=== PATIENT | male | born 1985 | race Caucasian/White ===

== ENCOUNTER 2017-04-13 20:58 | Emergency (ER) | payer SELFPAY ==
[~2017-04-13] VITALS: Ht 182.9 cm; Wt 79.5 kg
[2017-04-13 21:00] VITALS: BP 139/73; TEMP 98.8
[2017-04-13 21:53] LABS: BASO % 0.2 % (0.0-2.0); EOS # 0.2 (0.0-0.7); EOS % 1.4 % (0-4.0); GRAN % 77.9 % (42.2-75.2); HEMATOCRIT 42.4 % (42.0-52.0); HEMOGLOBIN 15.2 g/dl (13.5-18.0); LYMPH % 12.1 % (20.0-51.0); MEAN CELL VOLUME 85 fl (80.0-100.0); MEAN CORPUSCULAR HEMOGLOBIN 31 pg (27.0-31.0); MEAN CORPUSCULAR HGB CONC 36 g/dl (33.0-37.0); MEAN PLATELET VOLUME 8.9 fl (7.4-10.4); MONO # 1.3 (0.1-0.6); MONO % 7.9 % (1.7-9.3); PLATELET COUNT 245 K/mm3 (130-400); RED BLOOD COUNT 4.99 M/mm3 (4.20-5.60); REDCELL DISTRIBUTION WIDTH-CV 12.5 % (11.5-14.5); WHITE BLOOD COUNT 16.6 K/mm3 (4.8-10.8)
[2017-04-13 22:06] LABS: C-REACTIVE PROTEIN 1.5 mg/dL (0.0-0.9); URIC ACID 7.5 mg/dL (3.5-8.5)
[2017-04-13 22:13] LABS: ERYTHROCYTE SEDIMENTATION RATE 14 mm/hr (0-15)
[2017-04-13] MEDS ORDERED: CRUTCHES MC (22:19)
[2017-04-13 22:37] VITALS: PULSE 101
[2017-04-20] MEDS ORDERED: ASPIRIN 32325 MG/TAB PO (18:29)
[2017-04-20] MEDS ORDERED: ROXICODONE 55 MG/TAB PO (18:29)
[2017-04-20] MEDS ORDERED: ADVIL200 MG PO (18:30)
== END 2017-04-13 22:40 | disposition home or self-care (01) ==
LOC: COL.ER 20:58
PROVIDERS: Physician Assistant
DX: M25.571 Pain in right ankle and joints of right foot (principal); Z87.39 Personal history of other diseases of the musculoskeletal system and connective tissue

== ENCOUNTER 2017-04-14 18:56 | Emergency (ER) | payer SELFPAY ==
[~2017-04-14] VITALS: Ht 182.9 cm; Wt 79.5 kg
[~2017-04-14 18:56] MED LIST: CRUTCHES MC
[2017-04-14 19:07] VITALS: TEMP 98.4
[2017-04-14 21:19] LABS: BASO % 0.2 % (0.0-2.0); EOS # 0.4 (0.0-0.7); EOS % 2.4 % (0-4.0); GRAN % 74.6 % (42.2-75.2); HEMATOCRIT 42.2 % (42.0-52.0); HEMOGLOBIN 14.9 g/dl (13.5-18.0); LYMPH # 2.1 (1.2-3.4); LYMPH % 12.9 % (20.0-51.0); MEAN CELL VOLUME 86 fl (80.0-100.0); MEAN CORPUSCULAR HEMOGLOBIN 30 pg (27.0-31.0); MEAN CORPUSCULAR HGB CONC 35 g/dl (33.0-37.0); MEAN PLATELET VOLUME 9.1 fl (7.4-10.4); MONO # 1.5 (0.1-0.6); MONO % 9.5 % (1.7-9.3); PLATELET COUNT 211 K/mm3 (130-400); REDCELL DISTRIBUTION WIDTH-CV 12.4 % (11.5-14.5); WHITE BLOOD COUNT 16.1 K/mm3 (4.8-10.8)
[2017-04-14 21:40] LABS: ERYTHROCYTE SEDIMENTATION RATE 30 mm/hr (0-15)
[2017-04-15 00:09] LABS: CHLAMYDIA/TRACH by PCR Male NOT DETECTED; Neisseria Gon by PCR Male NOT DETECTED
[2017-04-15 00:32] VITALS: BP 135/76; PULSE 94
[2017-04-20] MEDS ORDERED: ASPIRIN 32325 MG/TAB PO (18:29)
[2017-04-20] MEDS ORDERED: ROXICODONE 55 MG/TAB PO (18:29)
[2017-04-20] MEDS ORDERED: ADVIL200 MG PO (18:30)
== END 2017-04-15 00:49 | disposition short-term general hospital (02) ==
LOC: COL.ER 18:56
PROVIDERS: Emergency Medicine
DX: M00.9 Pyogenic arthritis, unspecified (principal); M25.471 Effusion, right ankle
CPT/HCPCS: J1170; J1885; J3370; J7030; J7040

== ENCOUNTER 2017-04-21 16:30 | Outpatient (RCR) | payer MEDICAID ==
[2017-04-20 17:40] VITALS: BP 126/97; PULSE 97; TEMP 98
[2017-04-20 18:32] LABS: BASO % 0.2 % (0.0-2.0); EOS # 0.4 (0.0-0.7); EOS % 4.7 % (0-4.0); GRAN # 5.3 (1.4-6.5); GRAN % 61.1 % (42.2-75.2); HEMOGLOBIN 12.8 g/dl (13.5-18.0); LYMPH % 22.9 % (20.0-51.0); MEAN CELL VOLUME 86 fl (80.0-100.0); MEAN CORPUSCULAR HEMOGLOBIN 30 pg (27.0-31.0); MEAN CORPUSCULAR HGB CONC 35 g/dl (33.0-37.0); MEAN PLATELET VOLUME 8.7 fl (7.4-10.4); MONO # 0.9 (0.1-0.6); MONO % 10.6 % (1.7-9.3); PLATELET COUNT 295 K/mm3 (130-400); RED BLOOD COUNT 4.25 M/mm3 (4.20-5.60); REDCELL DISTRIBUTION WIDTH-CV 11.7 % (11.5-14.5); WHITE BLOOD COUNT 8.6 K/mm3 (4.8-10.8)
[2017-04-20 18:35] LABS: HEMATOCRIT 36.4 % (42.0-52.0)
[2017-04-20 18:43] LABS: ADJUSTED CALCIUM 9.8 mg/dL (8.4-10.2); ALBUMIN 3.9 gm/dL (3.5-5.0); BILIRUBIN,TOTAL 0.5 mg/dL (0.0-1.0); C-REACTIVE PROTEIN 3.5 mg/dL (0.0-0.9); CALCIUM 9.7 mg/dL (8.4-10.2); CREATININE, serum 0.94 mg/dL (0.66-1.25); POTASSIUM 3.5 mmol/L (3.4-5.0); TOTAL PROTEIN 7.2 gm/dL (6.4-8.2)
[~2017-04-21] VITALS: Ht 182.9 cm; Wt 79.5 kg
[~2017-04-21 16:30] MED LIST changes: +ADVIL200 MG PO; +ASPIRIN 32325 MG/TAB PO; +ROXICODONE 55 MG/TAB PO
[2017-04-21 16:46] VITALS: BP 127/73; PULSE 88; TEMP 98
[2017-04-24] MEDS ORDERED: ROXICODONE15 MG PO (12:02)
== END 2017-04-22 10:44 | disposition home or self-care (01) ==
LOC: EUO 16:30
PROVIDERS: Emergency Medicine
DX: A49.9 Bacterial infection, unspecified (principal); M01.X71 Direct infection of right ankle and foot in infectious and parasitic diseases classified elsewhere
CPT/HCPCS: J0878

== ENCOUNTER 2017-05-09 09:00 | Outpatient (RCR) | payer MEDICAID ==
[2017-04-24 09:29] VITALS: BP 129/85; PULSE 90; TEMP 98
[2017-04-25 08:57] VITALS: BP 133/84; PULSE 114
[2017-04-26 09:03] VITALS: BP 144/81; PULSE 107; TEMP 97.8
[2017-04-27 09:30] VITALS: BP 134/77; PULSE 100
[2017-04-28 09:30] VITALS: BP 131/72; PULSE 111; TEMP 98
[2017-04-28 09:40] LABS: HEMATOCRIT 39.7 % (42.0-52.0); MEAN CELL VOLUME 85 fl (80.0-100.0); MEAN CORPUSCULAR HEMOGLOBIN 30 pg (27.0-31.0); MEAN CORPUSCULAR HGB CONC 35 g/dl (33.0-37.0); MEAN PLATELET VOLUME 8.5 fl (7.4-10.4); PLATELET COUNT 309 K/mm3 (130-400); RED BLOOD COUNT 4.69 M/mm3 (4.20-5.60); WHITE BLOOD COUNT 9.3 K/mm3 (4.8-10.8)
[2017-04-28 09:53] LABS: ADJUSTED CALCIUM 9.7 mg/dL (8.4-10.2); ALBUMIN 4.5 gm/dL (3.5-5.0); BILIRUBIN,TOTAL 0.8 mg/dL (0.0-1.0); C-REACTIVE PROTEIN 0.9 mg/dL (0.0-0.9); CALCIUM 10.1 mg/dL (8.4-10.2); CREATININE, serum 1.14 mg/dL (0.66-1.25); POTASSIUM 3.5 mmol/L (3.4-5.0); TOTAL PROTEIN 7.9 gm/dL (6.4-8.2)
[2017-04-29 09:00] VITALS: BP 153/87; PULSE 88; TEMP 97.4
[2017-04-30 09:29] VITALS: BP 134/73; PULSE 102; TEMP 98.1
[2017-05-02 09:25] VITALS: BP 132/78; PULSE 82; TEMP 97.9
[2017-05-03 08:54] VITALS: BP 141/86; PULSE 110; TEMP 97.8
[2017-05-04 09:09] VITALS: BP 142/83; PULSE 97; TEMP 98
[2017-05-04 09:13] LABS: HEMATOCRIT 43.3 % (42.0-52.0); HEMOGLOBIN 15.1 g/dl (13.5-18.0); MEAN CELL VOLUME 86 fl (80.0-100.0); MEAN CORPUSCULAR HEMOGLOBIN 30 pg (27.0-31.0); MEAN CORPUSCULAR HGB CONC 35 g/dl (33.0-37.0); MEAN PLATELET VOLUME 8.8 fl (7.4-10.4); PLATELET COUNT 292 K/mm3 (130-400); RED BLOOD COUNT 5.03 M/mm3 (4.20-5.60); WHITE BLOOD COUNT 8.9 K/mm3 (4.8-10.8)
[2017-05-04 09:38] LABS: ADJUSTED CALCIUM 9.6 mg/dL (8.4-10.2); ALANINE AMINOTRANSFERASE 59 U/L (21-72); ALBUMIN 4.3 gm/dL (3.5-5.0); ALKALINE PHOSPHATASE 76 U/L (50-136); ANION GAP 11 mmol/L (7-16); BILIRUBIN,TOTAL 0.6 mg/dL (0.0-1.0); BLOOD UREA NITROGEN 14 mg/dL (9-20); CALCIUM 9.8 mg/dL (8.4-10.2); CARBON DIOXIDE 26 mmol/L (22-30); CHLORIDE 102 mmol/L (98-107); CREATINE KINASE 41 U/L (55-170); CREATININE, serum 0.94 mg/dL (0.66-1.25); GLUCOSE 104 mg/dL (74-106); POTASSIUM 4.3 mmol/L (3.4-5.0); SODIUM 139 mmol/L (137-145); TOTAL PROTEIN 7.8 gm/dL (6.4-8.2)
[2017-05-04 09:44] LABS: C-REACTIVE PROTEIN < 0.5 mg/dL (0.0-0.9)
[2017-05-06 08:58] VITALS: BP 157/83; PULSE 110; TEMP 98.2
[2017-05-07 09:30] VITALS: BP 165/97; PULSE 188; TEMP 97.3
[~2017-05-09] VITALS: Ht 182.9 cm; Wt 78.3 kg
[~2017-05-09 09:00] MED LIST changes: +ROXICODONE15 MG PO
== END 2017-05-14 16:15 | disposition home or self-care (01) ==
LOC: EUO 09:00
PROVIDERS: Emergency Medicine
DX: A49.02 Methicillin resistant Staphylococcus aureus infection, unspecified site (principal); M25.571 Pain in right ankle and joints of right foot; Z98.890 Other specified postprocedural states
CPT/HCPCS: J0878

== ENCOUNTER 2017-06-07 14:22 | Inpatient (IN) | payer MEDICAID ==
[~2017-06-07] VITALS: Ht 182.9 cm; Wt 80.1 kg
[2017-06-07 15:27] LABS: HEMATOCRIT 43.8 % (42.0-52.0); HEMOGLOBIN 15.9 g/dl (13.5-18.0); MEAN CELL VOLUME 82 fl (80.0-100.0); MEAN CORPUSCULAR HEMOGLOBIN 30 pg (27.0-31.0); MEAN CORPUSCULAR HGB CONC 36 g/dl (33.0-37.0); PLATELET COUNT 158 K/mm3 (130-400); RED BLOOD COUNT 5.34 M/mm3 (4.20-5.60); WHITE BLOOD COUNT 11.4 K/mm3 (4.8-10.8)
[2017-06-07 15:33] LABS: ADD PATHOLOGY DIFF REVIEW NO
[2017-06-07 15:41] LABS: ADJUSTED CALCIUM 9.2 mg/dL (8.4-10.2); ALBUMIN 4.6 gm/dL (3.5-5.0); CALCIUM 9.7 mg/dL (8.4-10.2); CREATININE, serum 1.32 mg/dL (0.66-1.25); POTASSIUM 3.3 mmol/L (3.4-5.0)
[2017-06-07 15:58] LABS: C-REACTIVE PROTEIN 19.8 mg/dL (0.0-0.9)
[2017-06-07 16:03] LABS: BAND 25 % (0-10); EOSINOPHIL 3 % (0-4); NEUTROPHILS 61 % (42.0-75.2); TOTAL CELLS COUNTED 100
[2017-06-07 16:04] LABS: COLLECTION METHOD CLEAN CATCH
[2017-06-07 16:05] LABS: LYMPHOCYTE 7 % (20.0-51.0); MICROCYTOSIS 1+
[2017-06-07 16:26] LABS: PH 5 (5-8); SQUAMOUS EPITHELIAL 0-2 /hpf; URINE APPEARANCE Hazy; URINE BACTERIA None Seen /hpf; URINE BILIRUBIN Negative (NEGATIVE); URINE BLOOD 1+ (NEGATIVE); URINE COLOR Yellow; URINE GLUCOSE Negative (NEGATIVE); URINE KETONE Negative (NEGATIVE); URINE LEUKOCYTE ESTERASE Negative (NEGATIVE); URINE PROTEIN(semi-quant) Negative (NEGATIVE); URINE RBC 0-2 /hpf; URINE WBC 0-2 /hpf
[2017-06-07 18:04] VITALS: BP 125/60; PULSE 91; TEMP 98.2
[2017-06-07 20:05] VITALS: BP 123/60; PULSE 96; TEMP 98.8
[2017-06-08 04:15] VITALS: BP 130/78; PULSE 100; TEMP 99.8
[2017-06-08 07:43] LABS: MEAN CELL VOLUME 84 fl (80.0-100.0); MEAN CORPUSCULAR HGB CONC 35 g/dl (33.0-37.0); MEAN PLATELET VOLUME 9.5 fl (7.4-10.4); PLATELET COUNT 132 K/mm3 (130-400); RED BLOOD COUNT 4.18 M/mm3 (4.20-5.60); WHITE BLOOD COUNT 6.3 K/mm3 (4.8-10.8)
[2017-06-08 07:47] LABS: ADD PATHOLOGY DIFF REVIEW NO; HEMATOCRIT 35.2 % (42.0-52.0); HEMOGLOBIN 12.3 g/dl (13.5-18.0); MEAN CORPUSCULAR HEMOGLOBIN 29 pg (27.0-31.0)
[2017-06-08 08:29] LABS: ERYTHROCYTE SEDIMENTATION RATE 22 mm/hr (0-15)
[2017-06-08 09:21] LABS: ANISOCYTOSIS 1+; BAND 46 % (0-10); LYMPHOCYTE 20 % (20.0-51.0); NEUTROPHILS 34 % (42.0-75.2); PLATELET ESTIMATE NORMAL (NORMAL); TOTAL CELLS COUNTED 100
[2017-06-08 09:43] VITALS: BP 121/74; PULSE 91; TEMP 97.5
[2017-06-08 12:35] VITALS: BP 119/68; PULSE 76; TEMP 97.2
[2017-06-08 16:12] VITALS: BP 107/51; PULSE 98; TEMP 98.2
[2017-06-08 20:50] VITALS: BP 119/68; PULSE 80; TEMP 98
[2017-06-09 00:39] VITALS: BP 115/60; PULSE 80; TEMP 98
[2017-06-09 07:33] LABS: CREATININE, serum 0.82 mg/dL (0.66-1.25)
[2017-06-09 08:19] VITALS: BP 116/70; PULSE 84; TEMP 97.9
[2017-06-09 11:41] VITALS: BP 125/76; PULSE 87; TEMP 98.4
[2017-06-09 12:01] LABS: GLUCOSE,SYNOVIAL FLUID < 20 mg/dL
[2017-06-09 12:13] LABS: SYNOVIAL FL. MONONUCLEAR 46.2 % (0-75); SYNOVIAL FL. POLYMORPHONUCLEAR 53.8 % (0-25); SYNOVIAL FLUID RBC 89000 /mm3 (0-0); SYNOVIAL FLUID WBC 119 /mm3 (200-600)
[2017-06-09 12:17] LABS: SYNOVIAL FLUID APPEARANCE HAZY; SYNOVIAL FLUID COLOR RED
[2017-06-09] MEDS ORDERED: CUBICIN 500MG500 MG IV (13:32)
[2017-06-10] MEDS ORDERED: DAZIDOX10 MG PO (10:03)
== END 2017-06-09 14:51 | disposition home or self-care (01) | DRG 872 ==
LOC: COL.ER 14:22 → MEDICAL 17:27
PROVIDERS: Emergency Medicine
PROC: 02HV33Z Insertion of Infusion Device into Superior Vena Cava, Percutaneous Approach (ICD-10-PCS; principal; 2017-06-09)
DX: A41.02 Sepsis due to Methicillin resistant Staphylococcus aureus (principal); M86.171 Other acute osteomyelitis, right ankle and foot; E87.2 Acidosis; B95.62 Methicillin resistant Staphylococcus aureus infection as the cause of diseases classified elsewhere
CPT/HCPCS: A9585; C1751; J0878; J1170; J1644; J2270; J2405; J2543; J3370; J7030; J7050; Q9967

== ENCOUNTER 2017-06-24 06:50 | Emergency (ER) | payer MEDICAID ==
[~2017-06-24] VITALS: Ht 182.9 cm; Wt 79.5 kg
[~2017-06-24 06:50] MED LIST changes: +CUBICIN 500MG500 MG IV; +DAZIDOX10 MG PO
[2017-06-24 06:54] VITALS: TEMP 97
[2017-06-24 08:10] LABS: BASO # 0.1 (0.0-0.2); BASO % 0.8 % (0.0-2.0); EOS # 0.4 (0.0-0.7); EOS % 5.2 % (0-4.0); GRAN # 3.6 (1.4-6.5); GRAN % 51.1 % (42.2-75.2); HEMATOCRIT 38.5 % (42.0-52.0); HEMOGLOBIN 13.6 g/dl (13.5-18.0); LYMPH % 27.7 % (20.0-51.0); MEAN CELL VOLUME 84 fl (80.0-100.0); MEAN CORPUSCULAR HEMOGLOBIN 30 pg (27.0-31.0); MEAN CORPUSCULAR HGB CONC 35 g/dl (33.0-37.0); MEAN PLATELET VOLUME 8.7 fl (7.4-10.4); MONO # 1.1 (0.1-0.6); MONO % 15.1 % (1.7-9.3); PLATELET COUNT 240 K/mm3 (130-400); RED BLOOD COUNT 4.61 M/mm3 (4.20-5.60); WHITE BLOOD COUNT 7.1 K/mm3 (4.8-10.8)
[2017-06-24 08:30] LABS: ERYTHROCYTE SEDIMENTATION RATE 22 mm/hr (0-15)
[2017-06-24 08:33] LABS: ADJUSTED CALCIUM 9.6 mg/dL (8.4-10.2); ALBUMIN 4.5 gm/dL (3.5-5.0); BILIRUBIN,TOTAL 1.4 mg/dL (0.0-1.0); C-REACTIVE PROTEIN 1.5 mg/dL (0.0-0.9); CREATININE, serum 1.02 mg/dL (0.66-1.25); POTASSIUM 3.4 mmol/L (3.4-5.0); TOTAL PROTEIN 7.8 gm/dL (6.4-8.2)
[2017-06-24 13:57] VITALS: BP 121/79; PULSE 98
[2017-06-24 14:08] LABS: SYNOVIAL FL. MONONUCLEAR 93.7 % (0-75); SYNOVIAL FL. POLYMORPHONUCLEAR 6.3 % (0-25); SYNOVIAL FLUID RBC 1000 /mm3 (0-0); SYNOVIAL FLUID WBC 383 /mm3 (200-600)
[2017-06-24 14:10] LABS: SYNOVIAL FLUID COLOR YELLOW
[2017-06-24 14:11] LABS: SYNOVIAL FLUID APPEARANCE HAZY
[2017-06-24 15:38] LABS: AMPHETAMINE URINE POSITIVE; BARBITURATES URINE NEGATIVE; BENZODIAZEPINES URINE NEGATIVE; BUPRENORPHINE URINE NEGATIVE; METHADONE URINE NEGATIVE; OPIATES URINE POSITIVE; OXYCODONE URINE POSITIVE; PHENCYCLIDINE URINE NEGATIVE; PROPOXYPHENE URINE NEGATIVE; THC CANNABINOIDS URINE POSITIVE; TRICYCLIC ANTIDEPRESS URINE NEGATIVE
== END 2017-06-24 14:04 | disposition home or self-care (01) ==
LOC: COL.ER 06:50
PROVIDERS: Physician Assistant
DX: L03.116 Cellulitis of left lower limb (principal); I80.8 Phlebitis and thrombophlebitis of other sites; M86.9 Osteomyelitis, unspecified
CPT/HCPCS: J0878; J1170; J1644; J7030

== ENCOUNTER → 2017-07-06 | Outpatient (CLI) | payer MEDICAID | LOC: COL.RAD 07:30 | DX: M47.814 Spondylosis without myelopathy or radiculopathy, thoracic region (principal); R70.0 Elevated erythrocyte sedimentation rate ==

== ENCOUNTER 2017-07-16 09:30 | Outpatient (RCR) | payer MEDICAID ==
[2017-06-10 09:59] VITALS: BP 134/74; PULSE 91; TEMP 98.1
[2017-06-11 09:46] VITALS: BP 133/76; PULSE 93; TEMP 98.1
[2017-06-12 09:42] VITALS: BP 141/84; PULSE 96; TEMP 98.1
[2017-06-13 09:13] VITALS: BP 133/79; PULSE 106; TEMP 97.3
[2017-06-14 09:28] VITALS: BP 129/79; PULSE 94; TEMP 97.9
[2017-06-14 09:34] LABS: HEMATOCRIT 37.5 % (42.0-52.0); HEMOGLOBIN 13.2 g/dl (13.5-18.0); MEAN CELL VOLUME 85 fl (80.0-100.0); MEAN CORPUSCULAR HEMOGLOBIN 30 pg (27.0-31.0); MEAN CORPUSCULAR HGB CONC 35 g/dl (33.0-37.0); MEAN PLATELET VOLUME 9.1 fl (7.4-10.4); PLATELET COUNT 300 K/mm3 (130-400); RED BLOOD COUNT 4.43 M/mm3 (4.20-5.60); REDCELL DISTRIBUTION WIDTH-CV 12.8 % (11.5-14.5)
[2017-06-14 09:42] LABS: ALBUMIN 4.3 gm/dL (3.5-5.0); BILIRUBIN,TOTAL 0.6 mg/dL (0.0-1.0); C-REACTIVE PROTEIN 0.8 mg/dL (0.0-0.9); CALCIUM 9.8 mg/dL (8.4-10.2); CREATININE, serum 0.82 mg/dL (0.66-1.25); POTASSIUM 3.9 mmol/L (3.4-5.0); TOTAL PROTEIN 7.5 gm/dL (6.4-8.2)
[2017-06-14 10:46] LABS: BAND 1 % (0-10); LYMPHOCYTE 39 % (20.0-51.0); NEUTROPHILS 56 % (42.0-75.2)
[2017-06-14 10:47] LABS: PLATELET ESTIMATE NORMAL (NORMAL)
[2017-06-14 10:48] LABS: MICROCYTOSIS 1+
[2017-06-15 09:22] VITALS: BP 124/66; PULSE 89; TEMP 97.4
[2017-06-16 09:21] VITALS: BP 111/65; PULSE 98; TEMP 97.6
[2017-06-17 09:09] VITALS: BP 130/75; PULSE 92; TEMP 97.6
[2017-06-18 09:46] VITALS: BP 135/81; PULSE 114; TEMP 98.3
[2017-06-19 08:36] VITALS: BP 130/75; PULSE 117
[2017-06-20 08:38] VITALS: BP 134/83; PULSE 113
[2017-06-21 09:33] VITALS: BP 135/77; PULSE 87; TEMP 97.8
[2017-06-22 08:51] VITALS: BP 153/81; PULSE 105
[2017-06-25 09:33] VITALS: BP 127/69; PULSE 85; TEMP 97.7
[2017-06-26 08:31] VITALS: BP 121/68; PULSE 98; TEMP 97.6
[2017-06-27 08:32] VITALS: BP 119/75; PULSE 85; TEMP 97.7
[2017-06-28 09:36] VITALS: BP 151/79; PULSE 109; TEMP 98.1
[2017-06-28 09:41] LABS: BASO % 0.4 % (0.0-2.0); EOS # 0.3 (0.0-0.7); EOS % 4.7 % (0-4.0); GRAN # 3.9 (1.4-6.5); GRAN % 54.2 % (42.2-75.2); HEMOGLOBIN 12.4 g/dl (13.5-18.0); LYMPH # 2.4 (1.2-3.4); LYMPH % 32.7 % (20.0-51.0); MEAN CELL VOLUME 84 fl (80.0-100.0); MEAN CORPUSCULAR HEMOGLOBIN 30 pg (27.0-31.0); MEAN CORPUSCULAR HGB CONC 35 g/dl (33.0-37.0); MEAN PLATELET VOLUME 8.8 fl (7.4-10.4); MONO # 0.6 (0.1-0.6); MONO % 7.6 % (1.7-9.3); PLATELET COUNT 241 K/mm3 (130-400); RED BLOOD COUNT 4.19 M/mm3 (4.20-5.60); REDCELL DISTRIBUTION WIDTH-CV 12.6 % (11.5-14.5)
[2017-06-28 10:00] LABS: ALBUMIN 4.1 gm/dL (3.5-5.0); BILIRUBIN,TOTAL 0.6 mg/dL (0.0-1.0); C-REACTIVE PROTEIN 0.9 mg/dL (0.0-0.9); CALCIUM 9.6 mg/dL (8.4-10.2); CREATININE, serum 0.83 mg/dL (0.66-1.25); POTASSIUM 3.5 mmol/L (3.4-5.0); TOTAL PROTEIN 7.1 gm/dL (6.4-8.2)
[2017-06-29 09:40] VITALS: BP 144/81; PULSE 74; TEMP 98.1
[2017-06-30 09:44] VITALS: BP 135/84; PULSE 112; TEMP 97.5
[2017-07-02 09:40] VITALS: BP 114/70; PULSE 111; TEMP 97.8
[2017-07-02 09:51] LABS: HEMATOCRIT 39.5 % (42.0-52.0); HEMOGLOBIN 13.8 g/dl (13.5-18.0); MEAN CELL VOLUME 84 fl (80.0-100.0); MEAN CORPUSCULAR HEMOGLOBIN 30 pg (27.0-31.0); MEAN CORPUSCULAR HGB CONC 35 g/dl (33.0-37.0); MEAN PLATELET VOLUME 8.7 fl (7.4-10.4); PLATELET COUNT 167 K/mm3 (130-400); RED BLOOD COUNT 4.68 M/mm3 (4.20-5.60)
[2017-07-02 10:06] LABS: ALBUMIN 4.3 gm/dL (3.5-5.0); BILIRUBIN,TOTAL 1.3 mg/dL (0.0-1.0); C-REACTIVE PROTEIN 5.1 mg/dL (0.0-0.9); CALCIUM 9.7 mg/dL (8.4-10.2); CREATININE, serum 0.8 mg/dL (0.66-1.25); TOTAL PROTEIN 7.5 gm/dL (6.4-8.2)
[2017-07-02 10:10] LABS: ERYTHROCYTE SEDIMENTATION RATE 28 mm/hr (0-15)
[2017-07-02 10:15] LABS: POTASSIUM 4.3 mmol/L (3.4-5.0)
[2017-07-03 08:45] VITALS: BP 138/68; PULSE 104
[2017-07-04 08:46] VITALS: BP 119/71; PULSE 98; TEMP 97.4
[2017-07-05 09:50] VITALS: BP 128/69; PULSE 99; TEMP 97.3
[2017-07-06 08:21] VITALS: BP 114/69; PULSE 96; TEMP 98
[2017-07-07 08:53] VITALS: BP 110/60; PULSE 66; TEMP 97
[2017-07-07 09:23] LABS: HEMOGLOBIN 12.8 g/dl (13.5-18.0); MEAN CELL VOLUME 83 fl (80.0-100.0); MEAN CORPUSCULAR HEMOGLOBIN 29 pg (27.0-31.0); MEAN CORPUSCULAR HGB CONC 36 g/dl (33.0-37.0); MEAN PLATELET VOLUME 8.9 fl (7.4-10.4); PLATELET COUNT 212 K/mm3 (130-400); RED BLOOD COUNT 4.35 M/mm3 (4.20-5.60); REDCELL DISTRIBUTION WIDTH-CV 12.6 % (11.5-14.5)
[2017-07-07 09:27] LABS: HEMATOCRIT 35.9 % (42.0-52.0)
[2017-07-07 09:51] LABS: ERYTHROCYTE SEDIMENTATION RATE 31 mm/hr (0-15)
[2017-07-08 09:28] VITALS: BP 120/66; PULSE 96; TEMP 98.2
[2017-07-09 09:41] VITALS: BP 136/84; PULSE 102; TEMP 97.8
[2017-07-10 08:40] VITALS: BP 136/80; PULSE 110; TEMP 97.4
[2017-07-11 09:26] VITALS: BP 119/79; PULSE 98; TEMP 98.1
[2017-07-12 08:43] VITALS: BP 137/82; PULSE 91; TEMP 97.2
[2017-07-13 09:38] VITALS: BP 134/81; PULSE 92; TEMP 98
[2017-07-14 09:36] VITALS: BP 135/83; PULSE 94; TEMP 97.6
[2017-07-15 09:30] VITALS: BP 125/78; PULSE 98; TEMP 97.8
[~2017-07-16] VITALS: Ht 182.9 cm; Wt 77.2 kg
[2017-07-16 09:44] LABS: HEMOGLOBIN 12.8 g/dl (13.5-18.0); MEAN CELL VOLUME 85 fl (80.0-100.0); MEAN CORPUSCULAR HEMOGLOBIN 30 pg (27.0-31.0); MEAN CORPUSCULAR HGB CONC 35 g/dl (33.0-37.0); MEAN PLATELET VOLUME 8.3 fl (7.4-10.4); PLATELET COUNT 230 K/mm3 (130-400); RED BLOOD COUNT 4.31 M/mm3 (4.20-5.60); REDCELL DISTRIBUTION WIDTH-CV 13.6 % (11.5-14.5)
[2017-07-16 09:46] LABS: HEMATOCRIT 36.8 % (42.0-52.0)
[2017-07-16 09:49] VITALS: BP 121/71; PULSE 101; TEMP 97.7
[2017-07-16 10:36] LABS: BAND 17 % (0-10); EOSINOPHIL 1 % (0-4); LYMPHOCYTE 41 % (20.0-51.0); NEUTROPHILS 41 % (42.0-75.2); PLATELET ESTIMATE NORMAL (NORMAL)
[2017-07-16 10:37] LABS: ERYTHROCYTE SEDIMENTATION RATE 9 mm/hr (0-15)
== END 2017-07-16 11:01 | disposition home or self-care (01) ==
LOC: EUO 09:30
PROVIDERS: Emergency Medicine
DX: M86.8X7 Other osteomyelitis, ankle and foot (principal); Z95.9 Presence of cardiac and vascular implant and graft, unspecified
CPT/HCPCS: J0878; J1644

== ENCOUNTER 2020-04-07 18:55 | Observation (INO) | payer SELFPAY ==
[~2020-04-07] VITALS: Ht 182.9 cm; Wt 79.0 kg
[2020-04-07 19:21] LABS: BASO % 0.3 % (0.0-2.0); EOS # 0.2 (0.0-0.7); EOS % 1.4 % (0-4.0); GRAN # 11.9 (1.4-6.5); GRAN % 76.6 % (42.2-75.2); HEMATOCRIT 45.2 % (42.0-52.0); HEMOGLOBIN 16.5 g/dl (13.5-18.0); LYMPH # 2.2 (1.2-3.4); LYMPH % 14.2 % (20.0-51.0); MEAN CELL VOLUME 85 fl (80.0-100.0); MEAN CORPUSCULAR HEMOGLOBIN 31 pg (27.0-31.0); MEAN CORPUSCULAR HGB CONC 37 g/dl (33.0-37.0); MONO # 1.1 (0.1-0.6); MONO % 7.1 % (1.7-9.3); PLATELET COUNT 270 K/mm3 (130-400); RED BLOOD COUNT 5.35 M/mm3 (4.20-5.60); REDCELL DISTRIBUTION WIDTH-CV 12.1 % (11.5-14.5)
[2020-04-07 19:53] LABS: ALANINE AMINOTRANSFERASE 15 U/L (4-49); ALBUMIN 4.7 gm/dL (3.5-5.0); ALKALINE PHOSPHATASE 78 U/L (50-136); ANION GAP 10 mmol/L (7-16); AST,SGOT 24 U/L (15-37); BILIRUBIN,TOTAL 1.2 mg/dL (0.0-1.0); BLOOD UREA NITROGEN 12 mg/dL (9-20); CARBON DIOXIDE 24 mmol/L (22-30); CHLORIDE 104 mmol/L (98-107); CREATININE, serum 0.83 (0.66-1.25); GLUCOSE 107 mg/dL (74-106); LIPASE 33 U/L (23-300); POTASSIUM 3.7 mmol/L (3.4-5.0); SODIUM 138 mmol/L (137-145); TOTAL PROTEIN 7.9 gm/dL (6.4-8.2)
[2020-04-07 20:00] LABS: C-REACTIVE PROTEIN < 0.5 mg/dL (0.0-0.9)
[2020-04-07 22:42] LABS: COLLECTION METHOD CLEAN CATCH
[2020-04-07 22:58] LABS: MUCOUS Present /lpf; PH 7 (5-8); SQUAMOUS EPITHELIAL None Seen /hpf; URINE APPEARANCE Clear; URINE BACTERIA Rare /hpf; URINE BILIRUBIN Negative (NEGATIVE); URINE BLOOD Negative (NEGATIVE); URINE COLOR Yellow; URINE GLUCOSE 1+ (NEGATIVE); URINE KETONE 1+ (NEGATIVE); URINE LEUKOCYTE ESTERASE Negative (NEGATIVE); URINE NITRATE Negative (NEGATIVE); URINE PROTEIN(semi-quant) 1+ (NEGATIVE); URINE UROBILINOGEN Negative (NEGATIVE)
[2020-04-07 23:22] VITALS: BP 112/59; PULSE 76; TEMP 97.7
--- NOTE | 2020-04-07 23:30 | NUR ---
Patient admitted to floor via ED. Oriented patient to room. He is having pain to his right lower abdomen. No complaints of nausea at this time. Patient is short with answering questions for admission assessments. Patient seems irritated with being admitted to the hospital. He verbalized he thought he would have surgery tonight and be discharged. Explained that surgery will be Wednesday during the day. Patient verbalized understanding. No other changes at this time. Call light within reach.
[2020-04-08 00:15] LABS: TRICYCLIC ANTIDEPRESS URINE NEGATIVE
[2020-04-08 04:00] VITALS: BP 124/52; PULSE 90; TEMP 97.8
--- NOTE | 2020-04-08 06:30 | NUR ---
Patient slept most the night. Pain well controlled with dilauded. No complaints of nausea. No other changes a this time. Call light within reach.
[2020-04-08 07:42] VITALS: BP 105/54; PULSE 69; TEMP 98.1
--- NOTE | 2020-04-08 09:21 | NUR ---
PT RESTING IN BED REQUESTING PAIN MEDICATION ON A FREQUENT BASIS. SCHEDULED FOR SURGERY THIS AM.
--- NOTE | 2020-04-08 10:17 | NUR ---
Initial visit; Patient thanked Sales Negotiator for stopping by and offering God's blessings.
[2020-04-08 12:00] VITALS: BP 112/61; PULSE 76; TEMP 97.5
--- NOTE | 2020-04-08 12:11 | NUR ---
PT TO ROOM 324 PER BED WITH REPORT FROM KWAKU PAPPAS [email or web address]. PT IS A/O X3, VSS, LUNGS CTA. LAP SITES CDI WITH BANDAIDS OVER INCISION. SCD BILATERALLY.
[2020-04-08 12:15] VITALS: BP 119/62; PULSE 81; TEMP 97.5
[2020-04-08 12:30] VITALS: BP 111/57; PULSE 57; TEMP 97.5
--- NOTE | 2020-04-08 12:36 | NUR ---
PT DOING WELL, UP TO BR VOIDED, WHILE IN BR. PT CAUGHT INT AND PULLED OUT. DRESSED SITE. PT TOLERATED WELL.
[2020-04-08 12:45] VITALS: BP 111/57; PULSE 84; TEMP 97.5
[2020-04-08] MEDS ORDERED: NORCO 325 MG-51 TAB PO (13:36)
--- NOTE | 2020-04-08 14:33 | NUR ---
DISCHARGE INSTRUCTIONS REVIEWED WITH PATIENT QUESTIONS ANSWERED PT LEFT WITH STAFF.
== END 2020-04-08 13:45 | disposition home or self-care (01) ==
LOC: COL.ER 18:55 → SURG 21:53
PROVIDERS: Emergency Medicine; ADMIT Surgery
DX: K35.80 Unspecified acute appendicitis (principal); F17.210 Nicotine dependence, cigarettes, uncomplicated
CPT/HCPCS: G0378; J0330; J0690; J1100; J1170; J1885; J2405; J2543; J2704; J3010; J7030; J7120; Q9967

== ENCOUNTER 2021-09-18 19:46 | Inpatient (IN) | payer SELFPAY ==
[~2021-09-18] VITALS: Ht 182.9 cm; Wt 82.1 kg
[~2021-09-18 19:46] MED LIST changes: +NORCO 325 MG-51 TAB PO
[2021-09-18 21:32] LABS: BASO % 0.4 % (0.0-2.0); EOS # 0.2 K/mm3 (0.0-0.7); EOS % 2.9 % (0.0-4.0); GRAN # 3.7 K/mm3 (1.4-6.5); GRAN % 52.3 % (42.2-75.2); HEMOGLOBIN 12.1 g/dl (13.5-18.0); LYMPH % 28.5 % (20.0-51.0); MEAN CELL VOLUME 82 fl (80.0-100.0); MEAN CORPUSCULAR HEMOGLOBIN 30 pg (27-31); MEAN CORPUSCULAR HGB CONC 36 g/dl (33.0-37.0); MEAN PLATELET VOLUME 9.6 fl (7.4-10.4); MONO # 1.1 K/mm3 (0.1-0.6); MONO % 15.6 % (1.7-9.3); PLATELET COUNT 145 K/mm3 (130-400); RED BLOOD COUNT 4.06 M/mm3 (4.20-5.60)
[2021-09-18 21:33] LABS: HEMATOCRIT 33.2 % (42.0-52.0)
[2021-09-18 21:43] LABS: COLLECTION METHOD CLEAN CATCH
[2021-09-18 21:46] LABS: ALANINE AMINOTRANSFERASE 59 U/L (0-55); ALBUMIN 3.4 gm/dL (3.5-5.0); ALKALINE PHOSPHATASE 75 U/L (40-150); ANION GAP 6 mmol/L (7-16); AST,SGOT 31 U/L (5-34); BILIRUBIN,TOTAL 0.9 mg/dL (0.2-1.2); BLOOD UREA NITROGEN 15 mg/dL (9-21); CALCIUM 8.2 mg/dL (8.4-10.2); CARBON DIOXIDE 26 mmol/L (22-29); CHLORIDE 103 mmol/L (98-107); CREATININE, serum 0.78 mg/dL (0.72-1.25); GLUCOSE 153 mg/dL (70-99); POTASSIUM 3.1 mmol/L (3.5-4.5); SODIUM 135 mmol/L (136-145); TOTAL PROTEIN 5.6 gm/dL (6.2-8.1)
[2021-09-18 21:48] LABS: PH 5 (5-8); SQUAMOUS EPITHELIAL 0-2 /hpf (0-10); URINE APPEARANCE Clear (CLEAR/HAZY); URINE BACTERIA None Seen /hpf (NONE SEEN); URINE BILIRUBIN Negative (NEGATIVE); URINE BLOOD Negative (NEGATIVE); URINE COLOR Yellow (YELLOW); URINE GLUCOSE Negative (NEGATIVE); URINE KETONE Negative (NEGATIVE); URINE LEUKOCYTE ESTERASE Negative (NEGATIVE); URINE NITRATE Negative (NEGATIVE); URINE PROTEIN(semi-quant) Negative (NEGATIVE); URINE RBC 0-2 /hpf (0-2)
[2021-09-18 21:53] LABS: TROPONIN-I < 0.010 ng/mL (0.00-0.033)
[2021-09-19 01:02] LABS: C-REACTIVE PROTEIN 2.5 mg/dL (0.00-0.50)
--- NOTE | 2021-09-19 02:52 | NUR ---
Vancomycin Initial Dosing Pharmacy Note Ordering provider: Janeen Neely Indication/duration: PPX for endocarditis pending MICHAEL. Relevant comorbidities: IV drug use LABS: SCr = 0.78 (Capped at 1) Recommendation: Will draw troughs and follow levels if continued. Loading dose: 1.5 grams Maintenance dose: 1.25 grams every 8 hours Trough goal: 15-20 ug/mL
[2021-09-19 03:59] VITALS: BP 110/53; PULSE 98; TEMP 97.7
--- NOTE | 2021-09-19 04:17 | NUR ---
Patient arrived to the unit aprox 0330, alert and oriented x 4, denies pain at this time. VSS. Started fluids at 125/ml/hr and potassium. Assessment completed. Pt tired and back to sleep easily.
--- NOTE | 2021-09-19 05:33 | NUR ---
Patien right now sleeping, receiving IV fluids and potassium. Report will be given to day RN.
[2021-09-19 07:20] LABS: BASO % 0.2 % (0.0-2.0); EOS # 0.3 K/mm3 (0.0-0.7); EOS % 4.9 % (0.0-4.0); GRAN % 49.9 % (42.2-75.2); LYMPH # 1.9 K/mm3 (1.2-3.4); LYMPH % 31.4 % (20.0-51.0); MEAN CELL VOLUME 84 fl (80.0-100.0); MEAN CORPUSCULAR HEMOGLOBIN 30 pg (27-31); MEAN CORPUSCULAR HGB CONC 35 g/dl (33.0-37.0); MEAN PLATELET VOLUME 10.2 fl (7.4-10.4); MONO # 0.8 K/mm3 (0.1-0.6); MONO % 13.3 % (1.7-9.3); PLATELET COUNT 143 K/mm3 (130-400); RED BLOOD COUNT 4.36 M/mm3 (4.20-5.60); REDCELL DISTRIBUTION WIDTH-CV 12.3 % (11.5-14.5)
[2021-09-19 07:26] LABS: CALCIUM 8.4 mg/dL (8.4-10.2); CREATININE, serum 0.72 mg/dL (0.72-1.25)
[2021-09-19 07:27] LABS: HEMATOCRIT 36.8 % (42.0-52.0)
[2021-09-19 08:15] VITALS: BP 106/67; PULSE 92; TEMP 97.9
[2021-09-19 10:20] LABS: TRICYCLIC ANTIDEPRESS URINE NEGATIVE
--- NOTE | 2021-09-19 10:47 | NUR ---
Patient is going down for MICHAEL at this time, consent signedand IVF on straight tubing
--- NOTE | 2021-09-19 11:28 | NUR ---
Patient will need 5L of oxygen at home. RAFY discussed this with patient. Patient would like to be established with [facility] for his O2. Addressed HH PT/OT with the patient. Patient declines those services due to feeling like he doesn't "need it". Patient reports he has no trouble with OT. Patient states he is independent with his transfers at home and has a shower chair and grab bars throughout the home to help with transfers. Educated the patient that at the very least he could have nursing HH come out and help with dressing changes. Patient reports that Niurka at [facility] has been completing his wound care and would like to continue going to her for dressing changes. Patient's oxygen orders faxed to [facility]. Spoke with Edenilson who plans on bringing the patient's portable tanks up to the hospital today and will plan on meeting the patient at home post discharge tomorrow to set up his home concentrator. Edenilson states that he will need to be notified of when the patient discharges so he can meet the patient at home. Patient reports that he would like his oxygen billed through his [facility] and [facility] supplement. Copies of patient's insurance cards faxed along with referral/orders. Patient's arrives to the unit. She brought the patient's CPAP machine with her. Patient's notified of the above and is agreeable to plan.
[2021-09-19 12:25] VITALS: BP 98/66; PULSE 99
--- NOTE | 2021-09-19 12:25 | NUR ---
patient arrived back to room from MICHAEL, he is alert/oriented, vital signs stable, denies pain, has put in discharge orders for him to go home, will discuss these with patient, removed IV and tele and will escort him out the door after his post procedure recovery time is met
[2021-09-19 12:40] VITALS: BP 104/67; PULSE 101
[2021-09-19 13:15] VITALS: BP 108/65; PULSE 99
--- NOTE | 2021-09-19 13:58 | NUR ---
Primary nurse was assisted with [id number] patient care by [employer] student Marilou Ye and [employer] instructor Janel Vizcarra MSN, RN.
== END 2021-09-19 13:36 | disposition home or self-care (01) | DRG 918 ==
LOC: COL.ER 19:46 → MEDICAL 09-19 02:18
PROVIDERS: Nurse Practitioner; Nurse Practitioner Family; ADMIT Internal Medicine
DX: T43.621A Poisoning by amphetamines, accidental (unintentional), initial encounter (principal); E87.1 Hypo-osmolality and hyponatremia; F41.9 Anxiety disorder, unspecified; F17.210 Nicotine dependence, cigarettes, uncomplicated; D64.9 Anemia, unspecified; E87.5 Hyperkalemia; R73.9 Hyperglycemia, unspecified; R16.1 Splenomegaly, not elsewhere classified; R07.9 Chest pain, unspecified
CPT/HCPCS: 99222-AI; 99239; J0696; J1650; J2060; J2250; J2704; J3370; J3480; J7030; J7050; Q9967

== ENCOUNTER 2024-01-11 17:06 | Emergency (ER) | payer SELFPAY ==
[~2024-01-11] VITALS: Ht 185.4 cm; Wt 84.1 kg
[2024-01-11 17:25] VITALS: TEMP 97.9
[2024-01-11] MEDS ORDERED: Ketorolac 30 MG/ML VIAL IM ONE (18:45)
[2024-01-11 19:27] VITALS: BP 143/88; PULSE 79
== END 2024-01-11 19:27 | disposition home or self-care (01) ==
LOC: COL.ER 17:06
DX: S50.12XA Contusion of left forearm, initial encounter (principal); W01.198A Fall on same level from slipping, tripping and stumbling with subsequent striking against other object, initial encounter; Y92.89 Other specified places as the place of occurrence of the external cause
CPT/HCPCS: J1885

== ENCOUNTER 2024-03-02 00:25 | Emergency (ER) | payer SELFPAY ==
[~2024-03-02] VITALS: Ht 185.4 cm; Wt 81.8 kg
[2024-03-02 00:26] VITALS: TEMP 98.3
[2024-03-02] MEDS ORDERED: NS 1,000 ML IV ONE (01:00)
[2024-03-02 01:01] LABS: BASO # 0.1 K/mm3 (0.0-0.2); BASO % 0.5 % (0.0-2.0); EOS # 0.2 K/mm3 (0.0-0.7); EOS % 1.6 % (0.0-4.0); GRAN # 7.7 K/mm3 (1.4-6.5); GRAN % 69.9 % (42.2-75.2); HEMATOCRIT 37.4 % (42.0-52.0); HEMOGLOBIN 13.6 g/dl (13.5-18.0); LYMPH # 2.2 K/mm3 (1.2-3.4); LYMPH % 19.7 % (20.0-51.0); MEAN CELL VOLUME 83 fl (80.0-100.0); MEAN CORPUSCULAR HEMOGLOBIN 30 pg (27-31); MEAN CORPUSCULAR HGB CONC 36 g/dl (33.0-37.0); MEAN PLATELET VOLUME 9.3 fl (7.4-10.4); MONO # 0.9 K/mm3 (0.1-0.6); MONO % 7.8 % (1.7-9.3); PLATELET COUNT 224 K/mm3 (130-400); REDCELL DISTRIBUTION WIDTH-CV 12.1 % (11.5-14.5)
[2024-03-02 01:15] LABS: ALANINE AMINOTRANSFERASE 15 U/L (0-55); ALBUMIN 4.1 g/dL (3.5-5.0); ALKALINE PHOSPHATASE 73 U/L (40-150); ANION GAP 11 mmol/L (7-16); AST,SGOT 18 U/L (5-34); BILIRUBIN,TOTAL 0.6 mg/dL (0.2-1.2); BLOOD UREA NITROGEN 18 mg/dL (9-21); CALCIUM 9.4 mg/dL (8.4-10.2); CHLORIDE 106 mEq/L (98-107); CREATINE KINASE 128 U/L (30-200); CREATININE, serum 1.16 mg/dL (0.72-1.25); GLUCOSE 114 mg/dL (70-99); POTASSIUM 3.5 mEq/L (3.5-4.5); SODIUM 138 mEq/L (136-145); TOTAL PROTEIN 6.6 g/dl (6.2-8.1)
[2024-03-02 01:20] LABS: ALCOHOL(ethanol),MEDICAL < 10 mg/dL (0-10); SALICYLATE < 5.0 mg/dL (15.0-30.0)
[2024-03-02 01:35] LABS: TSH w REFLEX 1.758 uIU/mL (0.350-4.940)
[2024-03-02 03:13] VITALS: BP 141/91; PULSE 81
== END 2024-03-02 03:13 | disposition home or self-care (01) ==
LOC: COL.ER 00:25
PROVIDERS: Emergency Medicine
DX: T40.411A Poisoning by fentanyl or fentanyl analogs, accidental (unintentional), initial encounter (principal); F17.210 Nicotine dependence, cigarettes, uncomplicated
CPT/HCPCS: J7030